=== PATIENT | male | born 1955 | race Caucasian/White ===

== ENCOUNTER 2018-11-02 16:15 | Emergency (ER) | payer BC ==
[~2018-11-02] VITALS: Ht 167.6 cm; Wt 111.1 kg
[~2018-11-02 16:15] MED LIST: ALLO300 PO; AMLO10 PO; ASPI81CH PO; LOSARTAN POTASS50 MG PO; OMEP20ER PO; SPIR50 PO
[2018-11-02] MEDS ORDERED: METF500 PO (16:36)
[2018-11-02] MEDS ORDERED: Hytrin1 MG PO (16:36)
[2018-11-02 16:54] LABS: BASOPHILS ABSOLUTE AUTO 0.04 K/mm3 (0.00-0.23); BASOPHILS PERCENT AUTO 1 % (0-2); EOSINOPHILS PERCENT AUTO 1 % (0-6); Hematocrit 42.2 % (37.0-53.0); Hemoglobin 14.4 g/dL (13.5-17.5); IMMATURE GRAN ABSOLUTE AUTO 0.03 K/mm3 (0.00-0.10); IMMATURE GRAN PERCENT AUTO 0 % (0-1); LYMPHOCYTES ABSOLUTE AUTO 2.69 K/mm3 (0.84-5.20); LYMPHOCYTES PERCENT AUTO 35 % (21-46); MONOCYTES ABSOLUTE AUTO 0.68 K/mm3 (0.16-1.47); MONOCYTES PERCENT AUTO 9 % (4-13); Mean Corpuscular HGB 29.9 pg (26.0-34.0); Mean Corpuscular HGB Conc 34.1 g/dL (31.5-36.5); Mean Corpuscular Volume 88 fL (80-100); Mean Platelet Volume 10.7 fL (9.1-12.4); NEUTROPHILS ABSOLUTE AUTO 4.21 K/mm3 (1.96-9.15); NEUTROPHILS PERCENT AUTO 54 % (41-73); Platelet Count 185 K/mm3 (150-400); RDW Coefficient Variation 12.1 % (11.7-14.2); RDW Standard Deviation 39.1 fL (35.1-46.3); Red Blood Cell Count 4.81 M/mm3 (4.30-5.90); White Blood Cell Count 7.75 K/mm3 (4.00-11.30)
[2018-11-02 17:14] LABS: Alanine Aminotransfer (ALT/SGP 59 U/L (12-78); Albumin, Blood 3.9 g/dL (3.4-5.0); Albumin/Globulin Ratio 1.2 (0.8-1.8); Alk Phos 178 U/L (50-136); Anion Gap 10 mmol/L (6-16); Aspartate Aminotrans (AST/SGOT 30 U/L (12-37); Bilirubin, Total 0.4 mg/dL (0.1-1.0); Blood Urea Nitrogen 20 mg/dL (8-24); Bun/Creatinine Ratio 23.2 (12.0-20.0); CO2, Blood 25 mmol/L (21-32); Calcium, Blood 9.1 mg/dL (8.5-10.1); Chloride, Blood 107 mmol/L (98-108); Creatinine, Blood 0.86 mg/dL (0.60-1.20); Globulin, Blood 3.3 g/dL (2.2-4.0); Glomerular Filtration Rate >60 (60-); Glucose, Blood 171 mg/dL (70-99); Potassium, Blood 4.1 mmol/L (3.5-5.5); Sodium, Blood 142 mmol/L (136-145); Total Protein, Blood 7.2 g/dL (6.4-8.2)
[2018-11-02 17:17] LABS: Troponin I <0.015 ng/mL (0.000-0.040)
== END 2018-11-02 19:14 | disposition home or self-care (01) ==
LOC: ER 16:15
PROVIDERS: Physician Assistant
DX: R07.9 Chest pain, unspecified (principal); E11.9 Type 2 diabetes mellitus without complications; I10 Essential (primary) hypertension; K21.9 Gastro-esophageal reflux disease without esophagitis; Z87.891 Personal history of nicotine dependence; Z79.84 Long term (current) use of oral hypoglycemic drugs; Z79.82 Long term (current) use of aspirin; Z79.899 Other long term (current) drug therapy
CPT/HCPCS: 71046; 80053; 84484; 85025; 93005; 93010; 99284-25

== ENCOUNTER 2021-12-29 08:22 | Day surgery (SDC) | payer BC, MEDICARE ==
[~2021-12-29] VITALS: Ht 165.1 cm; Wt 98.6 kg
[~2021-12-29 08:22] MED LIST changes: +DICL75ER PO; +Hytrin1 MG PO; +METF500 PO; +QUININE PO
--- NOTE | 2021-12-29 09:01 | NUR ---
Ambulatory in Day Surgery History, Chart, Medications and Allergies reviewed before start of procedure. Lungs clear T/O to Auscultation. Pre-Op teaching done. Pt verbalizes understanding.
--- NOTE | 2021-12-29 15:31 | NUR ---
POST OP: REPORT RECEIVED FROM [facility], COMMUNITY LIAISON. PT TO UNIT AT ABOUT 1400. A/O, VSS, SURGICAL SITE WNL. PT UNABLE TO MOVE LEGS AT THIS TIME DUE TO SPINAL, DENIES PAIN. PT AT BEDSIDE. CALL LIGHT IN REACH.
--- NOTE | 2021-12-29 18:59 | NUR ---
SUMMARY: PT HAS DONE WELL POST OP. SURGICAL SITE CDI. PT ABLE TO AMBULATE AND VOID. ATE DINNER. PAIN APPEARS TO BE WELL MANAGED WITH 10MG OXYCODONE. WILL PASS REPORT TO KALA MELENDREZ.
[2021-12-30 05:43] LABS: BASOPHILS ABSOLUTE AUTO 0.01 K/mm3 (0.00-0.23); BASOPHILS PERCENT AUTO 0 % (0-2); EOSINOPHILS PERCENT AUTO 0 % (0-6); Hematocrit 38.6 % (37.0-53.0); Hemoglobin 13.3 g/dL (13.5-17.5); IMMATURE GRAN ABSOLUTE AUTO 0.07 K/mm3 (0.00-0.10); IMMATURE GRAN PERCENT AUTO 1 % (0-1); LYMPHOCYTES ABSOLUTE AUTO 1.93 K/mm3 (0.84-5.20); LYMPHOCYTES PERCENT AUTO 15 % (21-46); MONOCYTES PERCENT AUTO 8 % (4-13); Mean Corpuscular HGB 29.1 pg (26.0-34.0); Mean Corpuscular HGB Conc 34.5 g/dL (31.5-36.5); Mean Corpuscular Volume 85 fL (80-100); NEUTROPHILS ABSOLUTE AUTO 10.21 K/mm3 (1.96-9.15); NEUTROPHILS PERCENT AUTO 77 % (41-73); Platelet Count 173 K/mm3 (150-400); RDW Standard Deviation 36.5 fL (35.1-46.3); Red Blood Cell Count 4.57 M/mm3 (4.30-5.90); White Blood Cell Count 13.22 K/mm3 (4.00-11.30)
[2021-12-30 06:14] LABS: Bun/Creatinine Ratio 22.4 (12.0-20.0); Calcium, Blood 9.4 mg/dL (8.5-10.1); Creatinine, Blood 0.85 mg/dL (0.60-1.20); Magnesium, Blood 2.2 mg/dL (1.6-2.4); Potassium, Blood 4.2 mmol/L (3.5-5.5)
--- NOTE | 2021-12-30 07:47 | NUR ---
SUMMARY PT UP IN CHAIR AT BEDSIDE.PAIN CONTROLLED.VOID W/O DIFF.RN AT BEDSIDE. HOPING FOR DISCHARGE.
[2021-12-30] MEDS ORDERED: ASPI81CH PO (09:56)
[2021-12-30] MEDS ORDERED: ROXICODONE5 MG PO (09:57)
[2021-12-30] MEDS ORDERED: PROM25 PO (09:58)
[2021-12-30] MEDS ORDERED: BACTRIM DS TAB1 EAC6 PO (09:58)
--- NOTE | 2021-12-30 10:41 | NUR ---
DISCHARGE SUMMARY PT POD #1 FOR R TOTAL KNEE. AQUACEL DRESSINGS IN PLACE AND CDI. C/O PAIN AFTER PHYSICAL THERAPY AND TREATED PER EMR WITH GOOD EFFECT. DISCHARGED HOME WITH .
== END 2021-12-30 10:50 | disposition home or self-care (01) ==
LOC: ORSCMMR 08:22 → ORD 11:00 → SURS 15:00 → ORSCMMR 12-30 10:50
PROVIDERS: Orthopaedic Surgery
PROC: 0SRC0J9 Replacement of Right Knee Joint with Synthetic Substitute, Cemented, Open Approach (ICD-10-PCS; principal; 2021-12-29 11:00)
DX: M17.11 Unilateral primary osteoarthritis, right knee (principal); I10 Essential (primary) hypertension; E78.00 Pure hypercholesterolemia, unspecified; G47.33 Obstructive sleep apnea (adult) (pediatric); E11.9 Type 2 diabetes mellitus without complications; K21.9 Gastro-esophageal reflux disease without esophagitis; E66.9 Obesity, unspecified; Z68.36 Body mass index [BMI] 36.0-36.9, adult; Z79.899 Other long term (current) drug therapy; Z87.891 Personal history of nicotine dependence
CPT/HCPCS: 36415; 73560-RT; 80048; 82947; 83735; 85025; 94660; 94762; 97110; 97116; 97161; 97530; A9270; C1713; C1776; J0171; J0690; J0735; J1100; J1815; J1885; J2250; J2405; J2704; J2795; J3010; J7120

== ENCOUNTER 2022-05-25 08:19 | Day surgery (SDC) | payer BC, MEDICARE ==
[~2022-05-25] VITALS: Ht 167.6 cm; Wt 98.1 kg
[~2022-05-25 08:19] MED LIST changes: +ACET500 PO; +AMLO5 PO; +BACTRIM DS TAB1 EAC6 PO; +MIRALAX11914 PO; +PROM25 PO; +ROXICODONE5 MG PO; +TRAM50 PO
--- NOTE | 2022-05-25 10:04 | NUR ---
THE PATIENT HAD A "RED MAN REACTOR" AT 1003, VANCO WAS SLOWED TO 55 ML PER HOUR.
--- NOTE | 2022-05-25 11:19 | NUR ---
05/25/22 [id number] Patito Hansen PATIENT RECEIVED VANCO 1GM IN THE PREOP SETTING PRIOR TO ARRIVING IN THE OR.
--- NOTE | 2022-05-25 13:40 | NUR ---
PATIENT ARRIVED TO ROOM VIA BED. GUAZE & LEISA WRAP DRESSING TO LEFT KNEE, POLAR PACK TO L KNEE, RINA HOSE & SCD'S IN PLACE. VSS ON RA. PATIENT DENIES PAIN. ABLE TO WIGGLE FEET, REPORTS NUMBNESS TO BLE. ORIENTED TO ROOM & CALL LIGHT, IN REACH.
[2022-05-25] MEDS ORDERED: OXYC5 PO (16:48)
[2022-05-25] MEDS ORDERED: LINE600 PO (16:49)
[2022-05-25] MEDS ORDERED: PROM25 PO (16:49)
--- NOTE | 2022-05-25 19:03 | NUR ---
SHIFT SUMMARY POD 0 L TKA, GAUZE & LEISA WRAP DRESSING C/D/I, POLAR PACK, RINA'S, & SCD'S IN PLACE. PAIN MANAGED WELL PER EMAR. UP TO BR, 1P MIN/SBA ASSIST W/ FWW & GB. EATING, DRINKING, & VOIDING WELL. DENIES N/V. CALLS APPROPRAIETLY, IN REACH. REPORT GIVEN TO GAVIN MELENDREZ.
--- NOTE | 2022-05-26 04:31 | NUR ---
POD1 LEFT TKA. SENSATION AND CIRCULATION REMAIN INTACT IN LLE. VSS. PAIN DIFFICULT TO CONTROL T/O THE NIGHT. 10 MG PO OXY DOES NOT CONTROL TS PAIN ADEQUATELY. PT REQUIRING IV MEDICATION. PT WAS ABLE TO AMBULATE AT THE BEGINNING OF SHIFT W/O DIFFICULTY. VOIDING W/O DIFFICULTY. TOLLERATING PO INTAKE W/O N/V. PLAN FOR PT TO WORK WITH PT/OT AND D/C HOME IF PAIN CAN BE CONTROLLED. THE PATIENT IS CURRENTLY SLEEPING, IN NO DISTRESS, CALL LIGHT IN REACH
[2022-05-26 05:02] LABS: BASOPHILS ABSOLUTE AUTO 0.01 K/mm3 (0.00-0.23); BASOPHILS PERCENT AUTO 0 % (0-2); EOSINOPHILS PERCENT AUTO 0 % (0-6); Hematocrit 36.7 % (37.0-53.0); Hemoglobin 12.7 g/dL (13.5-17.5); IMMATURE GRAN ABSOLUTE AUTO 0.06 K/mm3 (0.00-0.10); IMMATURE GRAN PERCENT AUTO 1 % (0-1); LYMPHOCYTES ABSOLUTE AUTO 1.43 K/mm3 (0.84-5.20); LYMPHOCYTES PERCENT AUTO 11 % (21-46); MONOCYTES ABSOLUTE AUTO 1.01 K/mm3 (0.16-1.47); MONOCYTES PERCENT AUTO 8 % (4-13); Mean Corpuscular HGB 28.5 pg (26.0-34.0); Mean Corpuscular HGB Conc 34.6 g/dL (31.5-36.5); Mean Corpuscular Volume 82 fL (80-100); Mean Platelet Volume 10.5 fL (9.1-12.4); NEUTROPHILS ABSOLUTE AUTO 10.71 K/mm3 (1.96-9.15); NEUTROPHILS PERCENT AUTO 81 % (41-73); Platelet Count 184 K/mm3 (150-400); RDW Coefficient Variation 12.4 % (11.7-14.2); RDW Standard Deviation 37.2 fL (35.1-46.3); Red Blood Cell Count 4.46 M/mm3 (4.30-5.90); White Blood Cell Count 13.22 K/mm3 (4.00-11.30)
[2022-05-26 06:42] LABS: Bun/Creatinine Ratio 19.8 (12.0-20.0); Calcium, Blood 9.1 mg/dL (8.5-10.1); Creatinine, Blood 0.81 mg/dL (0.60-1.20); Magnesium, Blood 2.4 mg/dL (1.6-2.4); Potassium, Blood 4.5 mmol/L (3.5-5.5)
--- NOTE | 2022-05-26 10:00 | NUR ---
DISCHARGE PT HAS CLEARED THERAPY. PAIN WELL CONTROLLED PER EMAR. AQUACEL OVER EACH INCISION, C/D/I. EATING, DRINKING, & VOIDING WELL. DISCUSSED DISCHARGE INSTRUCTIONS WITH PATIENT. DRESSINGS, DISCHARGE INSTRUCTIONS, & POLAR PACK SENT WITH PATIENT. ESCORTED OUT VIA W/C.
== END 2022-05-26 10:16 | disposition home or self-care (01) ==
LOC: ORSCMMR 08:19 → ORD 11:00 → SURS 13:37 → ORSCMMR 05-26 10:16 → ORD 06-08 14:00
PROVIDERS: Orthopaedic Surgery
PROC: 0SRD0J9 Replacement of Left Knee Joint with Synthetic Substitute, Cemented, Open Approach (ICD-10-PCS; principal; 2022-05-25 11:00)
DX: M17.12 Unilateral primary osteoarthritis, left knee (principal); I10 Essential (primary) hypertension; E78.5 Hyperlipidemia, unspecified; G47.33 Obstructive sleep apnea (adult) (pediatric); E11.9 Type 2 diabetes mellitus without complications; E66.9 Obesity, unspecified; Z68.34 Body mass index [BMI] 34.0-34.9, adult; Z79.899 Other long term (current) drug therapy; Z79.82 Long term (current) use of aspirin
CPT/HCPCS: 36415; 73560-LT; 80048; 82947; 83735; 85025; 97110; 97116; 97161; 97530; A9270; C1713; C1776; J0171; J0690; J0735; J1100; J1170; J1815; J1885; J2250; J2370; J2405; J2704; J2795; J3010; J3370; J7030; J7120

== ENCOUNTER 2022-08-22 17:23 | Inpatient (IN) | payer BC, MEDICARE ==
[~2022-08-22] VITALS: Ht 167.6 cm; Wt 93.1 kg
[~2022-08-22 17:23] MED LIST changes: +LINE600 PO; +OXYC5 PO
[2022-08-22] MEDS ORDERED: DULCOLAX STOOL100 M3 PO (17:56)
[2022-08-22 18:03] LABS: BASOPHILS ABSOLUTE AUTO 0.02 K/mm3 (0.00-0.23); BASOPHILS PERCENT AUTO 0 % (0-2); EOSINOPHILS ABSOLUTE AUTO 0.04 K/mm3 (0.00-0.68); EOSINOPHILS PERCENT AUTO 0 % (0-6); Hemoglobin 15.2 g/dL (13.5-17.5); IMMATURE GRAN ABSOLUTE AUTO 0.02 K/mm3 (0.00-0.10); IMMATURE GRAN PERCENT AUTO 0 % (0-1); LYMPHOCYTES ABSOLUTE AUTO 3.18 K/mm3 (0.84-5.20); LYMPHOCYTES PERCENT AUTO 31 % (21-46); MONOCYTES ABSOLUTE AUTO 0.72 K/mm3 (0.16-1.47); MONOCYTES PERCENT AUTO 7 % (4-13); Mean Corpuscular HGB 27.7 pg (26.0-34.0); Mean Corpuscular HGB Conc 34.5 g/dL (31.5-36.5); Mean Corpuscular Volume 80 fL (80-100); Mean Platelet Volume 10.7 fL (9.1-12.4); NEUTROPHILS ABSOLUTE AUTO 6.16 K/mm3 (1.96-9.15); NEUTROPHILS PERCENT AUTO 61 % (41-73); Platelet Count 205 K/mm3 (150-400); RDW Coefficient Variation 13.1 % (11.7-14.2); RDW Standard Deviation 37.9 fL (35.1-46.3); Red Blood Cell Count 5.48 M/mm3 (4.30-5.90); White Blood Cell Count 10.14 K/mm3 (4.00-11.30)
[2022-08-22 18:26] LABS: International Normalized Ratio 1.01; Prothrombin Time Results 10.6 Sec (9.7-11.5)
[2022-08-22 18:29] LABS: Albumin/Globulin Ratio 1.2 (0.8-1.8); Bilirubin, Total 0.5 mg/dL (0.1-1.0); Bun/Creatinine Ratio 29.7 (12.0-20.0); Calcium, Blood 9.9 mg/dL (8.5-10.1); Creatinine, Blood 0.94 mg/dL (0.60-1.20); Globulin, Blood 3.3 g/dL (2.2-4.0); Potassium, Blood 3.8 mmol/L (3.5-5.5); Total Protein, Blood 7.3 g/dL (6.4-8.2)
[2022-08-22 20:25] VITALS: BP 123/73
[2022-08-22 23:31] VITALS: BP 103/70
[2022-08-23] VITALS (11 sets, daily range): BP systolic 99–134; BP diastolic 70–94
[2022-08-23 02:33] LABS: Anion Gap 8 mmol/L (6-16); Blood Urea Nitrogen 24 mg/dL (8-24); Bun/Creatinine Ratio 28.3 (12.0-20.0); CO2, Blood 24 mmol/L (21-32); Calcium, Blood 8.8 mg/dL (8.5-10.1); Chloride, Blood 112 mmol/L (98-108); Cholesterol 170 mg/dL (50-200); Creatinine, Blood 0.85 mg/dL (0.60-1.20); Glomerular Filtration Rate 95 (60-); Glucose, Blood 124 mg/dL (70-99); HDL Cholesterol 34 mg/dL (>39); LDL/HDL RATIO 2.9; Low Density Lipoprotein Chol 99 mg/dL (0-110); Sodium, Blood 144 mmol/L (136-145); Triglycerides 185 mg/dL (30-160); Very Low Density Lipoprot Chol 37 mg/dL (6-32)
--- NOTE | 2022-08-23 06:28 | NUR ---
SHIFT SUMMARY PATIENT ARRIVED TO PCU 15 AT 2016. HE IS ALERT AND ORIENTED X4 AND ABLE TO AMBULATE INDEPENDENTLY IN HIS ROOM. NITRO PASTE PLACED ON ADMIT AND REMOVED AFTER ABOUT SEVEN HOURS DUE TO BLOOD PRESSURE DROPPING TO 99 SYSTOLIC. VITAL SIGNS STABLE. PATIENT HAS HAD NO COMPLAINTS OF CHEST PAIN OVERNIGHT. PATIENT WORE HOME CPAP TO SLEEP, OTHERWISE ON ROOM AIR SATING >90%. CARDIOLOGY CONSULT CALLED TO THE ANSWERING SERVICE. WILL CONTINUE TO MONITOR. CALL LIGHT WITHIN REACH.
--- NOTE | 2022-08-23 13:24 | NUR ---
Upon receiving a referral for spiritual care, I visited patient. Patient's spouse, Yoli is bedside. Patient had recently returned from [place] when I arrived in the patient's rm. 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 We discuss their family, the events tht led to his hospitalization and the concerns going forward. I normalize their experience, and provide therapeutic listening and prayer. Patient and Yoli responded well and showed signs of greater peace and being encouraged in their Yazidism basilio. I will continue to remain available to patient and family.
--- NOTE | 2022-08-23 15:24 | NUR ---
ASSUMED CARE OF PT AT 0700 THIS AM. PT TO DOOR FITTER FOR ANGIOGRAM THIS AM, RETURNED WITH TR BAND TO R RADIAL SITE, NO BLEEDING OR HEMATOMA ON ARRIVAL TO ROOM. ANGIOGRAM RESULTED IN NO INTERVENTIONS, 3 VESSEL DISEASE NOTED, PT WILL BE TRANSFERRED TO HIGHER LEVEL OF CARE FOR CABG CONSULT. TR BAND RECOVERED WITHOUT INCIDENT. REPORT CALLED TO DAMIEN MELENDREZ [facility] AT 1455. PT TRANSPORTED VIA AMBULANCE WITH ALL BELONGINGS AT 1517. PTs AT BEDSIDE AND NOTIFIED OF TRANSFER, INCLUDING PHONE AND ROOM NUMBER. NO FURTHER NEEDS AT THIS TIME.
== END 2022-08-23 15:17 | disposition short-term general hospital (02) | DRG 282 ==
LOC: ER 17:23 → PCU 19:57
PROVIDERS: Nurse Practitioner Acute Care; Physician Assistant; ADMIT Internal Medicine
PROC: 5A09357 Assistance with Respiratory Ventilation, Less than 24 Consecutive Hours, Continuous Positive Airway Pressure (ICD-10-PCS; 2022-08-22)
PROC: 4A023N7 Measurement of Cardiac Sampling and Pressure, Left Heart, Percutaneous Approach (ICD-10-PCS; principal; 2022-08-23)
PROC: B2111ZZ Fluoroscopy of Multiple Coronary Arteries using Low Osmolar Contrast (ICD-10-PCS; 2022-08-23)
DX: I21.4 Non-ST elevation (NSTEMI) myocardial infarction (principal); E11.9 Type 2 diabetes mellitus without complications; E78.5 Hyperlipidemia, unspecified; I10 Essential (primary) hypertension; G47.33 Obstructive sleep apnea (adult) (pediatric); K21.9 Gastro-esophageal reflux disease without esophagitis; I25.10 Atherosclerotic heart disease of native coronary artery without angina pectoris; Z98.890 Other specified postprocedural states; Z90.49 Acquired absence of other specified parts of digestive tract; Z87.891 Personal history of nicotine dependence; Z79.899 Other long term (current) drug therapy; Z79.82 Long term (current) use of aspirin
CPT/HCPCS: 36415; 71046; 76937; 80048; 80053; 80061; 82947; 83690; 84484; 85025; 85347; 85520; 85610; 93005; 93010; 93458; 94660; 94762; 96374; 96376; 99152; 99153; 99285-25; A9270; C1769; C1887; C1894; C8929; J1644; J2250; J3010; J7030; J7040; J7050; Q9957; Q9967

== ENCOUNTER → 2023-05-05 | Outpatient (CLI) | payer BC, MEDICARE ==
[~2023-05-05] MED LIST changes: +DULCOLAX STOOL100 M3 PO
== END ==
LOC: LAB SHORT 15:44
DX: L72.3 Sebaceous cyst (principal)
CPT/HCPCS: 87070; 87075; 87205